=== PATIENT | female | born 1970 | race Caucasian/White ===

== ENCOUNTER → 2021-02-27 | Day surgery (SDC) | payer OTHER ==
[~2021-02-27] VITALS: Ht 160 cm; Wt 65.8 kg
[~2021-02-27] MED LIST: LEXAPRO20 MG PO; PERCOCET 5-3251 EACH PO; WELLBUTRIN100 MG PO; ZANTAC150 MG PO
[2021-02-27 07:29] LABS: HCG (URINE) SCREEN NEGATIVE (NEGATIVE)
== END | disposition home or self-care (01) ==
LOC: FAS 06:59
PROVIDERS: Surgery
DX: K43.9 Ventral hernia without obstruction or gangrene (principal); K66.0 Peritoneal adhesions (postprocedural) (postinfection); K59.09 Other constipation; R19.7 Diarrhea, unspecified; Z98.51 Tubal ligation status; Z90.49 Acquired absence of other specified parts of digestive tract; Z88.1 Allergy status to other antibiotic agents; Z80.0 Family history of malignant neoplasm of digestive organs; Z72.89 Other problems related to lifestyle
CPT/HCPCS: 84703; C1713; C1781; J0690; J1100; J1170; J1885; J2250; J2405; J2550; J2704; J3010; J7120